=== PATIENT | female | born 1955 | race Caucasian/White ===

== ENCOUNTER 2023-09-25 12:01 | Emergency (ER) | payer OTHER ==
[~2023-09-25] VITALS: Ht 152.4 cm; Wt 73.0 kg
[2023-09-25 12:33] LABS: HEMATOCRIT. 40.1 % (36.0-48.0); HEMOGLOBIN. 12.8 g/dL (12.0-16.0); MEAN CORPUSCULAR HEMOGLOBIN 25.6 pg (28.0-32.0); MEAN PLATELET VOLUME 7.9 fl (7.4-10.4); PLATELET 414 x1000/uL (130-400); RED BLOOD CELL COUNT 5.01 mill/uL (4.2-5.4); RED CELL DISTRIBUTION WIDTH 19.8 % (11.6-14.6); WHITE BLOOD COUNT 13.4 x1000/uL (4.5-11.0)
[2023-09-25 12:38] LABS: DIFFERENTIAL COMMENT 1
[2023-09-25 12:51] LABS: PROTHROMBIN TIME 10.9 sec (9.6-11.0)
[2023-09-25 13:03] LABS: ALANINE AMINOTRANSFERASE 59 IU/L (10-49); ALBUMIN 4.8 g/dL (3.2-4.8); ASPARTATE AMINOTRANSFERASE 67 IU/L (<34); BILIRUBIN TOTAL 0.4 mg/dL (0.1-1.0); CALCIUM 8.9 mg/dL (8.7-10.4); CARBON DIOXIDE 25 mEq/L (21-32); CHLORIDE 106 mEq/L (98-107); CREATININE 0.8 mg/dL (0.6-1.0); GLUCOSE 126 mg/dL (70-105); POTASSIUM 3.2 mEq/L (3.5-5.1); PROTEIN TOTAL 7.6 g/dL (6.0-8.3); SODIUM 138 mEq/L (136-145); UREA NITROGEN BLOOD 22 mg/dL (9-23)
[2023-09-25 13:04] LABS: TROPONIN I HIGH SENSITIVITY < 4 ng/L (3.0-34)
[2023-09-25 13:57] LABS: ANISOCYTOSIS 1+; PLATELET ESTIMATE SLIGHTLY INCREASED
[2023-09-25] MEDS: KETOROLAC 60MG/2ML VIAL IM NR (14:00)
[2023-09-25] MEDS: KETOROLAC 60MG/2ML VIAL IM ONE (14:27)
[2023-09-25] MEDS: ACETAMINOPHEN 325MG TABLET ONE (15:49)
[2023-09-25] MEDS: ONDANSETRON 4MG ODT PO ONE (16:00)
[2023-09-25] MEDS: ACETAMINOPHEN 500MG TABLET ONE (16:03)
[2023-09-25] MEDS: ACETAMINOPHEN 325MG TABLET PO ONE (16:04)
[2023-09-25] MEDS: ONDANSETRON HCL 4MG TABLET ONE (16:21)
[2023-09-25 16:26] LABS: TROPONIN I HIGH SENSITIVITY < 4 ng/L (3.0-34)
[2023-09-25 16:52] VITALS: BP 148/68; PULSE 68; RESP 12; TEMP 97
== END 2023-09-25 16:54 | disposition home or self-care (01) ==
LOC: ER 14:25
DX: R07.89 Other chest pain (principal); M25.512 Pain in left shoulder; M25.511 Pain in right shoulder; M25.562 Pain in left knee; M25.561 Pain in right knee; Z88.5 Allergy status to narcotic agent
CPT/HCPCS: 99285; 71250; 71045; 80053; 85025; 85610; 84484; 36415; 93005; 96372; Q0162; J1885